=== PATIENT | female | born 1965 | race Caucasian/White ===

== ENCOUNTER 2017-10-18 08:30 | Day surgery (SDC) | payer BC ==
[~2017-10-18] VITALS: Ht 162.6 cm; Wt 81.0 kg
[~2017-10-18 08:30] MED LIST: ADVIL200 MG PO; IRON325 M1 PO; ZYRTEC10 M2 PO
[2017-10-18 09:01] VITALS: BP 130/78
[2017-10-18 12:02] VITALS: BP 127/69
[2017-10-18 13:09] VITALS: BP 130/71
== END 2017-10-18 13:10 | disposition home or self-care (01) ==
LOC: SDC 08:30
DX: N84.0 Polyp of corpus uteri (principal); N92.1 Excessive and frequent menstruation with irregular cycle; N95.0 Postmenopausal bleeding; D64.9 Anemia, unspecified; E66.9 Obesity, unspecified; Z68.30 Body mass index [BMI] 30.0-30.9, adult; Z80.3 Family history of malignant neoplasm of breast
CPT/HCPCS: 88305; J0131; J0690; J1100; J1170; J1885; J2250; J2405; J2765; J3010